=== PATIENT | female | born 1965 | race Caucasian/White ===

== ENCOUNTER 2020-07-08 04:56 | Emergency (ER) | payer SELFPAY ==
[2020-07-08 05:12] VITALS: BP 156/81; PULSE 78; RESP 18; TEMP 35.2; O2SAT 94; BMI 34.4
--- NOTE | 2020-07-08 05:33 | W.ED.ABDPA2 ---
HPI - Abdominal Pain General: Chief Complaint: Abdominal Pain Stated Complaint: side pain Time Seen by Provider: 07/08/20 05:01 History of Present Illness: HPI narrative: 55-year-old female presents with abdominal pain began at 2 AM left side. Patient reports the pain is extreme radiating from the left flank down into the pelvic area on the left side. She denies any gross hematuria she is not had a history of kidney stones she is not had any dysuria urgency or frequency. At home pain was extreme she is rating it a 10 of 10 however shortly after arriving in the emergency room she had sudden relief of the pain and is not recurred. By the time I seen her her pain is completely resolved. She declines offer for pain medications. She did vomit x2 due to the level of pain at home. She denies any radicular pain into her leg. She not had any fever sweats or chills. No recent respiratory symptoms. MD elicited complaint: flank pain Pertinent past history: none Onset (ago): hour(s) Pain Consistency: constant, now resolved and colicky Location: L flank Quality: sharp Radiation: LLQ and suprapubic Exacerbating factors: nothing Relieving factors: nothing Associated Symptoms: Reports nausea and vomiting; Denies change in bowel habits, change in stool character, chills, coffee ground emesis, constipation, GI cramping, diarrhea, dyspepsia, dysuria, fever(s), heartburn, hematochezia, hematuria, hematemesis, fecal incontinence, loose stools, melena, poor appetite and syncope Review of Systems Const: Denies: fever(s) or chills ENMT: Denies: throat pain, ear or mastoid pain, nasal discharge or nasal congestion Card: Denies: syncope Resp: Denies: dyspnea, productive cough or non-productive cough GI: Reports: nausea and vomiting; Denies: hematemesis, coffee ground emesis, heartburn, diarrhea, constipation, GI cramping, fecal incontinence, change in bowel habits, change in stool character, hematochezia or melena : Denies: dysuria or hematuria Skin/Breast: Denies: rash or pruritus PFSH ED PFSH: Medical History Hypertension Impaired glucose tolerance Surgical History History of appendectomy Social History Smoking and tobacco status: never smoked Alcohol intake: current Alcohol intake frequency: few times a month Physical Exam Const: COMMON NORMALS: no acute distress GENERAL APPEARANCE: cooperative and comfortable ORIENTATION/CONSCIOUSNESS: Yes awake, Yes oriented to person, Yes oriented to place and Yes oriented to time HENMT: COMMON NORMALS: normocephalic, atraumatic, hearing grossly normal bilaterally, external ears normal, EAC's normal, TM's normal bilaterally, Normal nasal mucous membranes and turbinates present, moist oral mucous membranes and oropharynx normal HEAD & SCALP: normocephalic and atraumatic NOSE: Normal nasal mucous membranes and turbinates present EXTERNAL EAR: Yes external ears normal EXTERNAL AUDITORY CANAL: EAC's normal TYMPANIC MEMBRANE: TM's normal bilaterally Eye: COMMON NORMALS: Equal, round and reactive pupils present, EOMs intact bilaterally, conjunctivae normal and no scleral icterus CONJUNCTIVA: Yes conjunctivae normal PUPIL: Yes Equal, round and reactive pupils present Neck/C-Spine: COMMON NORMALS: full ROM, no lymphadenopathy, supple and no JVD Lymph: LYMPHATIC: no lymphadenopathy noted and no lymphedema noted Resp: COMMON NORMALS: normal respiratory effort, No retractions, No use of accessory muscles and clear to auscultation bilaterally AUSCULTATION: clear to auscultation bilaterally Cardio: COMMON NORMALS: no JVD, regular rate, regular rhythm and No murmurs present (Cardio) RATE: regular rate RHYTHM: regular rhythm GI: COMMON NORMALS: Soft to palpation and No hepatosplenomegaly present AUSCULTATION: Yes normoactive bowel sounds PALPATION: Yes Soft to palpation, No Tenderness to palpation present (GI), No Guarding due to palpation present (GI) and Yes No hepatosplenomegaly present Extremity: COMMON NORMALS: normal to inspection, capillary refill normal, no clubbing, cyanosis or edema, no calf tenderness and no pedal edema Neuro: SENSORIUM/ORIENTATION: Yes oriented to person, Yes oriented to place and Yes oriented to time Skin: COMMON NORMALS: no rashes or lesions noted GENERAL SKIN EXAM: no rashes or lesions noted Course Vital Signs: Vital signs: Vital Signs Temperature 95.3 F L 07/08/20 05:12 Pulse Rate 78 07/08/20 06:06 Respiratory Rate 16 07/08/20 06:06 Blood Pressure 123/78 07/08/20 06:06 Pulse Oximetry 98 07/08/20 06:06 MDM - Abdominal Pain MDM Narrative: Medical decision making narrative: Patient has hematuria on UA. No signs of infection clinically she does have 1+ leukocyte esterase but also has and is same number of squamous cells is white cells. Prior to this beginning she was not having any dysuria urgency or frequency. I did not start her on antibiotics based on the lack of clinical symptoms. We will have her strain her urine and return stone to the emergency room if it is caught. Follow-up with her primary care doctor. Lab Data: Labs: Lab Results 07/08/20 07/08/20 07/08/20 Range/Units 05:32 05:32 06:04 WBC 10.7 H (4.0-10.0) 10^3/ uL RBC 5.20 (4.1-5.3) 10^6/u L Hgb 14.5 (11.5-15.3) g/dL Hct 44.9 (37.0-47.0) % MCV 86.3 (81-99) fL MCH 27.9 L (28.0-34.0) pg MCHC 32.3 (30.0-36.0) g/dL RDW 11.9 L (12.1-15.1) % Plt Count 260 (130-400) 10^3/c mm MPV 10.6 H (7.4-10.4) fL Neut % (Auto) 80.6 % Lymph % (Auto) 11.5 % Mineral % (Auto) 4.6 % Eos % (Auto) 2.0 % Baso % (Auto) 0.4 % Neut # (Auto) 8.64 H (1.8-7.7) 10^3/u L Lymph # (Auto) 1.2 (0.8-4.8) 10^3/u L Mineral # (Auto) 0.5 (0.2-0.9) 10^3/u L Eos # (Auto) 0.2 (0.0-0.8) 10^3/u L Baso # (Auto) 0.0 (0.0-0.1) 10^3/u L Nucleated RBC % (a uto) 0 % Nucleated RBCs # 0.0 /100WBC Sodium 136 (136-145) mmol/L Potassium 3.8 (3.5-5.1) mmol/L Chloride 101 (98-107) mmol/L Carbon Dioxide 25 (22-29) mmol/L Anion Gap 13.8 (5-19) BUN 12 (6-20) mg/dL Creatinine 0.7 (0.5-0.9) mg/dL GFR Calculation 86.2 L (90-130) mL/min Glucose 334 H (65-115) mg/dL Calculated Osmolal ity 291 (285-295) mOsm/k g Calcium 8.6 (8.5-10.5) mg/dL Total Bilirubin 1.0 (0.15-1.2) mg/dL AST 35 H (0-32) U/L ALT 58 H (0-33) U/L Alkaline Phosphata se 82 (35-105) IU/L Total Protein 7.3 (6.6-8.7) g/dL Albumin 4.2 (3.5-5.2) g/dL Globulin 3.1 (1.3-4.6) g/dL Urine Color Yellow (Yellow) Urine Appearance Cloudy (CLEAR) Urine pH 5 (5-7) Ur Specific Gravit y 1.020 (1.005-1.030) Urine Protein Neg (Negative) Urine Glucose (UA) 4+ H (Normal) Urine Ketones Negative (Negative) Urine Blood 3+ H (Negative) Urine Nitrate Negative (Negative) Urine Bilirubin Neg (NEGATIVE) Urine Urobilinogen Norm (Negative) mg/dL Ur Leukocyte Noelle ase 1+ H (Negative) Urine RBC Too numerous to c nt H (0-2) /hpf Urine WBC 5-10 H (0-5) /hpf Ur Squamous Epith Cells 5-10 H (0-5) Amorphous Sediment Not Reportable Urine Bacteria 1+ H (NONE) Discharge Plan Discharge Patient Disposition: Home Clinical Impression: Calculus of kidney Condition: Stable Discharge Orders: Discharge Order (Routine); Ordered 07/08/20 Ordered By: Zachary Atkinson Referrals: Nikky Alonso MD [Primary Care Provider] - Discharge Diet: Usual diet Discharge Activity: Increase activity as tolerated Activity Restrictions/Additional Instructions: Strain urine to collect stone return for analysis Discharge Date/Time: 07/08/20 07:09 Coding Level of Care Code ED Forestry Professor for Chg Fwd Exam Comprehensive
--- NOTE | 2020-07-08 05:34 | XR_ITS ---
WS: [id number] EXAM: ABDOMINAL KUB DATE OF EXAMINATION: 07/08/2020, 0538 hours COMPARISON: None. HISTORY: Patient is 55 years old with left-sided abdominal pain. Prior appendectomy. FINDINGS: The bowel gas pattern is normal. Increased stool demonstrated. No definite calcifications seen to sug gest renal or ureteral calculi. Solid organ silhouettes do not appear enlarged. Several calcification s in the deep pelvis are most likely phleboliths. If clinically there is concern for renal colic comp lete exclusion of a distal ureteral stone cannot be made. XR/XR KUB [id number] IMPRESSION: Normal bowel gas pattern. Slightly increased stool. No definite calcifications to suggest renal or ureteral calculi. See report.
[2020-07-08 05:39] VITALS: BP 132/84; PULSE 78; RESP 16; O2SAT 98
[2020-07-08 05:52] LABS: Basophils % 0.4 %; Eosinophils # 0.2 10^3/uL (0.0-0.8); Hematocrit 44.9 % (37.0-47.0); Hemoglobin 14.5 g/dL (11.5-15.3); Lymphocytes # 1.2 10^3/uL (0.8-4.8); Lymphocytes % 11.5 %; Mean Corpuscular HGB Conc 32.3 g/dL (30.0-36.0); Mean Corpuscular Hemoglobin 27.9 pg (28.0-34.0); Mean Corpuscular Volume 86.3 fL (81-99); Mean Platelet Volume 10.6 fL (7.4-10.4); Monocytes # 0.5 10^3/uL (0.2-0.9); Monocytes % 4.6 %; Neutrophils # 8.64 10^3/uL (1.8-7.7); Neutrophils % 80.6 %; Nucleated Red Blood Cells % 0 %; Platelet Count 260 10^3/cmm (130-400); Red Cell Distribution Width 11.9 % (12.1-15.1); White Blood Count 10.7 10^3/uL (4.0-10.0)
[2020-07-08 06:06] VITALS: BP 123/78; PULSE 78; RESP 16; O2SAT 98
[2020-07-08 06:22] LABS: Alanine Aminotransferase 58 U/L (0-33); Albumin Level 4.2 g/dL (3.5-5.2); Alkaline Phosphatase 82 IU/L (35-105); Anion Gap 13.8 (5-19); Aspartate Amino Transferase 35 U/L (0-32); Blood Urea Nitrogen 12 mg/dL (6-20); Calcium 8.6 mg/dL (8.5-10.5); Carbon Dioxide 25 mmol/L (22-29); Chloride 101 mmol/L (98-107); Globulin 3.1 g/dL (1.3-4.6); Glomerular Filtration Rate 86.2 mL/min (90-130); Glucose 334 mg/dL (65-115); Osmolality Calculated 291 mOsm/kg (285-295); Potassium 3.8 mmol/L (3.5-5.1); Sodium 136 mmol/L (136-145); Total Protein 7.3 g/dL (6.6-8.7)
[2020-07-08 06:32] LABS: Bilirubin Urine Neg (NEGATIVE); Blood Urine 3+ (Negative); Glucose Urine UA 4+ (Normal); Ketones Urine Negative (Negative); Leukocyte Esterase Urine 1+ (Negative); Nitrate Urine Negative (Negative); Protein Urine Neg (Negative); Urine Appearance Cloudy (CLEAR); Urine Color Yellow (Yellow); Urobilinogen Urine Norm (Negative); pH Urine 5 (5-7)
[2020-07-08 06:33] LABS: Add Urine Microscopic? YES
[2020-07-08 06:34] LABS: RBC Urine TOO NUMEROUS TO CNT /hpf (0-2)
[2020-07-08 06:35] LABS: Add Urine Culture? Yes; Bacteria Urine 1+
--- NOTE | 2020-07-08 06:52 | PC.NURSE ---
RN resumed care at this time.
== END 2020-07-08 07:09 | disposition home or self-care (01) ==
PROVIDERS: Emergency Provider Family Medicine; PCP Family Medicine
DX: N20.0 Calculus of kidney (principal); I10 Essential (primary) hypertension
CPT/HCPCS: 12345; 74018; 80053; 81001; 85025; 87086; 99283

== ENCOUNTER → 2021-12-19 10:05 | Outpatient (BNVA) | payer OTHER, SELFPAY | PROVIDERS: Visit Provider Family Medicine | DX: Z20.828 Contact with and (suspected) exposure to other viral communicable diseases (principal) | CPT/HCPCS: 87635 ==

== ENCOUNTER → 2022-05-31 11:10 | Outpatient (BNVA) | payer OTHER, SELFPAY | PROVIDERS: Visit Provider Psychiatry & Neurology Psychiatry | DX: F41.9 Anxiety disorder, unspecified (principal); Z79.899 Other long term (current) drug therapy | CPT/HCPCS: 80053; 80061; 83036; 84443 ==

== ENCOUNTER → 2022-07-27 08:45 | Outpatient (BNVA) | payer OTHER, SELFPAY | PROVIDERS: PCP Family Medicine; Visit Provider Family Medicine | DX: M25.60 Stiffness of unspecified joint, not elsewhere classified (principal); M79.10 Myalgia, unspecified site; F32.A Depression, unspecified; Z12.39 Encounter for other screening for malignant neoplasm of breast; Z12.11 Encounter for screening for malignant neoplasm of colon | CPT/HCPCS: 82670; 85651; 86038; 86140; 86431 ==

== ENCOUNTER 2022-08-03 07:54 | Outpatient (CLI) | payer OTHER, SELFPAY ==
--- NOTE | 2022-08-03 07:58 | MM_ITS ---
WS: [id number] Bilateral screening 3D tomosynthesis digital mammogram, 08/03/2022 Clinical Data: breast cancer screening Comparison: 03/28/2015. Findings: The breast parenchymal pattern shows heterogeneous density. No spiculated masses or clustered calcifi cations are seen. There are no secondary signs of carcinoma. The bilateral augmentation mammoplasty i mplants remain intact. MM/[place] [id number] Impression: 1. Negative bilateral mammogram unchanged. 2. Recommend annual screening mammograms. BIRADS: 2-Benign FOLLOW UP: 1 Year Follow-up The CAD relay checker was used.
== END 2022-08-03 07:55 | disposition home or self-care (01) ==
PROVIDERS: PCP Family Medicine; Visit Provider Family Medicine
DX: Z12.31 Encounter for screening mammogram for malignant neoplasm of breast (principal)
CPT/HCPCS: 77063; 77067

== ENCOUNTER → 2022-10-15 10:40 | Outpatient (BNVA) | payer OTHER, SELFPAY | PROVIDERS: PCP Family Medicine; Visit Provider Registered Nurse Neonatal Intensive Care | DX: R05.9 Cough, unspecified (principal); J10.1 Influenza due to other identified influenza virus with other respiratory manifestations | CPT/HCPCS: 87400 ==

== ENCOUNTER → 2022-10-26 11:32 | Outpatient (BNVA) | payer OTHER, SELFPAY | PROVIDERS: PCP Family Medicine; Visit Provider Family Medicine | DX: E78.5 Hyperlipidemia, unspecified (principal); I10 Essential (primary) hypertension; E11.69 Type 2 diabetes mellitus with other specified complication; E66.9 Obesity, unspecified | CPT/HCPCS: 80048; 80061; 83036 ==

== ENCOUNTER 2022-12-07 14:10 | Outpatient (CLI) | payer OTHER, SELFPAY ==
--- NOTE | 2022-12-07 14:35 | XR_ITS ---
WS: [id number] LEFT ELBOW: 3 VIEW(S) TECHNIQUE: AP, oblique and lateral. HISTORY: elbow pain COMPARISON: None available. No acute fractures or dislocation. No joint effusion. No soft tissue abnormality. XR/XR elbow LT min 3V* [id number] IMPRESSION: Normal LEFT elbow.
== END 2022-12-07 14:11 | disposition home or self-care (01) ==
LOC: RAD 14:12
PROVIDERS: PCP Family Medicine; Visit Provider Nurse Practitioner
DX: M25.522 Pain in left elbow (principal)
CPT/HCPCS: 73080

== ENCOUNTER 2023-01-28 07:04 | Outpatient (CLI) | payer OTHER, SELFPAY ==
--- NOTE | 2023-01-28 07:15 | MR_ITS ---
WS: [id number] EXAMINATION: MR elbow LT wo con* [id number] ORDER DATE: 01/28/2023 7:14 AM COMPARISON: None. HISTORY: worsening pain 6 weeks p trauma CONTRAST: None.None. TECHNIQUE: Axial T1, axial T2 fat sat, coronal T1, coronal proton density fat sat, coronal STIR, sagi ttal proton density fat sat, and axial fat sat 3D performed. After contrast, axial T1 fat sat, coron al T1 fat sat, and sagittal T1 fat sat were performed. FINDINGS: Small amount of edema with fluid along the common extensor tendon origin along the lateral epicondyle. Findings compatible with partial tear. Distal tendon is normal in appearance. Normal comm on flexor tendon origin. Normal bone marrow signal in the distal humerus. Normal bone marrow signal in the radius and ulna. No suspicious abnormalities directly deep to the palpable marker on the lateral aspect of the elbow. No subcutaneous mass or lesion in this location. Normal olecranon. Normal coronoid process. Radial head and neck are normal in appearance. No significant joint effusion. Small amount of subcuta neous edema along the dorsal elbow. No drainable fluid collections. MR/MR elbow LT wo con* [id number] IMPRESSION: 1. Small amount of fluid and edema along the common extensor tendon origin at the lateral epicondyle compatible with partial tear. Recommend correlation for lateral epicondylitis. 2. Normal bone marrow signal. No acute fractures. 3. Normal common flexor tendon origin.
== END 2023-01-28 07:05 | disposition home or self-care (01) ==
LOC: RAD 07:05
PROVIDERS: PCP Family Medicine; Visit Provider Family Medicine
DX: M25.522 Pain in left elbow (principal); R60.0 Localized edema
CPT/HCPCS: 73221

== ENCOUNTER 2023-03-04 13:36 | Outpatient (CLI) | payer OTHER, SELFPAY ==
[2023-03-04 14:41] LABS: Alanine Aminotransferase 39 U/L (0-33); Albumin Level 4.3 g/dL (3.5-5.2); Alkaline Phosphatase 82 U/L (35-105); Anion Gap 11.7 (5-19); Aspartate Amino Transferase 31 U/L (0-32); Blood Urea Nitrogen 8 mg/dL (6-20); Calcium 8.5 mg/dL (8.5-10.5); Carbon Dioxide 26 mmol/L (22-29); Chloride 101 mmol/L (98-107); Chol HDL Ratio 2.88 mg/dL (0.0-4.40); Cholesterol 141 mg/dL (0-200); Globulin 2.5 g/dL (1.3-4.6); Glomerular Filtration Rate 126.3 mL/min (90-130); Glucose 125 mg/dL (65-115); HDL Cholesterol 49 mg/dL (60-100); LDL Cholesterol Calculated 65 mg/dL (50-129); LDL HDL Ratio 1.33 RATIO (0.00-3.22); Osmolality Calculated 280 mOsm/kg (285-295); Potassium 3.7 mmol/L (3.5-5.1); Sodium 135 mmol/L (136-145); Total Bilirubin 1.5 mg/dL (0.15-1.2); Total Protein 6.8 g/dL (6.6-8.7); Triglycerides 135 mg/dL (0-150)
[2023-03-04 14:59] LABS: Estmated Average Glucose 171; Hemoglobin A1C 7.6 % (4.0-6.0)
== END 2023-03-04 13:37 | disposition home or self-care (01) ==
PROVIDERS: PCP Family Medicine; Visit Provider Family Medicine
DX: E11.69 Type 2 diabetes mellitus with other specified complication (principal); E66.9 Obesity, unspecified
CPT/HCPCS: 36415; 80053; 80061; 83036

== ENCOUNTER 2023-03-06 06:00 | Outpatient (RCR) | payer OTHER, SELFPAY | END 2023-03-17 23:59 | disposition home or self-care (01) | LOC: SOT 06:00 | PROVIDERS: PCP Family Medicine; Visit Provider Orthopaedic Surgery | DX: M77.12 Lateral epicondylitis, left elbow (principal) | CPT/HCPCS: 97110; 97165 ==

== ENCOUNTER 2023-03-18 06:00 | Outpatient (RCR) | payer OTHER, SELFPAY | END 2023-04-17 23:59 | disposition home or self-care (01) | LOC: SOT 06:00 | PROVIDERS: PCP Family Medicine; Visit Provider Orthopaedic Surgery | DX: M77.12 Lateral epicondylitis, left elbow (principal) | CPT/HCPCS: 97022; 97035; 97110; 97140; 97165 ==

== ENCOUNTER 2023-04-18 06:00 | Outpatient (RCR) | payer OTHER, SELFPAY | END 2023-05-17 23:59 | disposition home or self-care (01) | LOC: SOT 06:00 | PROVIDERS: PCP Family Medicine; Visit Provider Orthopaedic Surgery | DX: M77.12 Lateral epicondylitis, left elbow (principal) | CPT/HCPCS: 97032; 97035; 97110; G0283 ==

== ENCOUNTER 2023-05-18 06:00 | Outpatient (RCR) | payer OTHER, SELFPAY | END 2023-06-17 23:59 | disposition home or self-care (01) | LOC: SOT 06:00 | PROVIDERS: PCP Family Medicine; Visit Provider Orthopaedic Surgery | DX: M77.12 Lateral epicondylitis, left elbow (principal) | CPT/HCPCS: 97035; 97110; 97140; G0283 ==

== ENCOUNTER 2023-06-18 06:00 | Outpatient (RCR) | payer OTHER, SELFPAY | END 2023-07-18 23:59 | disposition home or self-care (01) | LOC: SOT 06:00 | PROVIDERS: PCP Family Medicine; Visit Provider Orthopaedic Surgery | DX: M77.10 Lateral epicondylitis, unspecified elbow (principal) | CPT/HCPCS: 97035; 97110; 97140 ==

== ENCOUNTER → 2023-07-10 12:59 | Outpatient (BNVA) | payer OTHER, SELFPAY | PROVIDERS: PCP Family Medicine; Visit Provider Specialist | DX: M65.832 Other synovitis and tenosynovitis, left forearm | CPT/HCPCS: 73080 ==

== ENCOUNTER 2023-08-06 07:02 | Outpatient (CLI) | payer OTHER, SELFPAY ==
--- NOTE | 2023-08-06 07:15 | MR_ITS ---
WS: [id number] MRI LEFT ELBOW WITHOUT CONTRAST. COMPARISON: 01/28/2023 Multiplanar, multisequence imaging is performed without contrast. The signal within the common extensor tendon at the attachment to the epicondyle has improved. Nearly completely resolved T2 signal. There is still a very thin area of increased T2 signal involving the common extensor tendon with mild thickening of the tendon. The radial collateral ligament appears int act. There is no joint effusion and no edema. No atrophy to the muscle bodies. No muscle edema. No additio nal abnormalities. IMPRESSION: 1. Significant improvement in the partial tear involving the common extensor tendon. There is still a small amount of increased T2 signal at its attachment to the epicondyle. Incomplete healing of the p artial common extensor tendon tear at this time. 2. There is mild intermediate increased signal and thickening of the common extensor tendon at the ep icondyle consistent with mild tendinopathy. 3. No joint effusion.
== END 2023-08-06 07:03 | disposition home or self-care (01) ==
LOC: RAD 07:03
PROVIDERS: PCP Family Medicine; Visit Provider Specialist
DX: M65.839 Other synovitis and tenosynovitis, unspecified forearm (principal); S56.512D Strain of other extensor muscle, fascia and tendon at forearm level, left arm, subsequent encounter; X58.XXXD Exposure to other specified factors, subsequent encounter
CPT/HCPCS: 73221

== ENCOUNTER → 2023-09-13 12:43 | Outpatient (BNVA) | payer OTHER, SELFPAY | PROVIDERS: PCP Family Medicine; Visit Provider Family Medicine | DX: E11.69 Type 2 diabetes mellitus with other specified complication (principal); E66.9 Obesity, unspecified | CPT/HCPCS: 80048; 80061; 83036 ==

== ENCOUNTER 2023-09-25 12:03 | Outpatient (CLI) | payer OTHER, SELFPAY ==
--- NOTE | 2023-09-25 12:08 | XR_ITS ---
WS: [id number] KUB, AP view, 09/25/2023 Clinical Data: left renal colic Comparison: KUB, 07/08/2020 Findings: No abnormal intraabdominal masses or calcifications are seen. There is no dilatated small bowel or ev idence of obstruction. There is a moderate amount of fecal material in the colon. Impression: Moderate fecal material in the colon.
== END 2023-09-25 12:04 | disposition home or self-care (01) ==
LOC: RAD 12:04
PROVIDERS: PCP Family Medicine; Visit Provider Family Medicine
DX: N20.0 Calculus of kidney (principal)
CPT/HCPCS: 74018; 81000

== ENCOUNTER → 2024-06-26 08:45 | Outpatient (BNVA) | payer OTHER, SELFPAY | PROVIDERS: PCP Family Medicine; Visit Provider Family Medicine | DX: E11.9 Type 2 diabetes mellitus without complications (principal) | CPT/HCPCS: 80053; 80061; 82607; 83036 ==

== ENCOUNTER → 2024-12-04 09:17 | Outpatient (BNVA) | payer OTHER, SELFPAY | PROVIDERS: PCP Family Medicine; Visit Provider Family Medicine | DX: E11.9 Type 2 diabetes mellitus without complications; E11.69 Type 2 diabetes mellitus with other specified complication; E66.9 Obesity, unspecified; E78.5 Hyperlipidemia, unspecified; I10 Essential (primary) hypertension; F98.8 Other specified behavioral and emotional disorders with onset usually occurring in childhood and adolescence; N20.0 Calculus of kidney; H26.9 Unspecified cataract; Z00.00 Encounter for general adult medical examination without abnormal findings | CPT/HCPCS: 80053; 80061; 82607; 83036 ==

== ENCOUNTER 2024-12-31 08:07 | Outpatient (CLI) | payer OTHER, SELFPAY ==
--- NOTE | 2024-12-31 08:00 | MM_ITS ---
WS: [id number] BILATERAL SCREENING DIGITAL BREAST MAMMOGRAPHY WITH [place]ON DISPLACEMENT VIEWS. CAD PERFORMED. HISTORY: breast cancer screening COMPARISON: 08/03/2022 Bilateral craniocaudal and mediolateral oblique views are performed with tomosynthesis and SM. Newtno displacement views in CC and MLO projection also performed. Breasts composition: There are scattered areas of fibroglandular density. Prepectoral implants are intact and similar to the prior study. No suspicious masses or calcifications. No distortion. MM/MM scr tomosynthesis [id number] IMPRESSION: BI-RADS: 2 - Benign. FOLLOW-UP: 1 Year Follow-up
== END 2024-12-31 08:08 | disposition home or self-care (01) ==
PROVIDERS: PCP Family Medicine; Visit Provider Family Medicine
DX: Z12.31 Encounter for screening mammogram for malignant neoplasm of breast (principal); R92.323 Mammographic fibroglandular density, bilateral breasts; Z98.82 Breast implant status
CPT/HCPCS: 77063; 77067

== ENCOUNTER 2025-02-18 05:53 | Day surgery (SDC) | payer OTHER, SELFPAY ==
--- NOTE | 2025-02-18 06:03 | W.PM.OPSFHP ---
Same Day Surgery H&P Indication for Procedure/HPI DATE OF PROCEDURE: February 18, 2025 CHIEF COMPLAINT/INDICATIONFOR SURGICAL PROCEDURE: need for screening colonoscopy PREOP DIAGNOSIS: need for screening colonoscopy PLANNED PROCEDURE: Operation Date: 02/18/25 07:00 Proposed Procedures p Colonoscopy 86127 G0121 Z12.11(Not Applicable) - Omar Hinton MD Medications/Allergies* Home Medications ?Medication ?Instructions ?Recorded ?Confirmed ?Type magnesium 200 mg tablet 200 mg PO DAILY 08/06/23 02/15/25 History atorvastatin 40 mg tablet 40 mg PO DAILY 02/15/25 02/15/25 History lisinopril 5 mg tablet 5 mg PO DAILY 02/15/25 02/15/25 History metformin 500 mg tablet 1,000 mg PO DAILY 02/15/25 02/15/25 History tramadol 50 mg tablet 50 mg PO Q6H PRN kidney stone 02/15/25 02/15/25 History Allergies/Adverse Reactions Allergy/AdvReac Type Severity Reaction Status Date / Time penicillin G Allergy ALGY-Anaphy Verified 02/15/25 09:26 laxis semaglutide (From Ozempic) Allergy ADR-Abdominal Verified 02/15/25 09:26 Pain Pertinent History/Comorbid Conditions* Medical History (Updated 12/04/24 @ 09:18 by Mecca Escalera MD) History of kidney stones Hyperlipidemia Depression Diabetes mellitus type 2 in obese Anxiety Hypertension Surgical History (Updated 07/27/22 @ 08:28 by Mecca Escalera MD) History of breast augmentation History of tonsillectomy History of appendectomy Family History (Updated 07/27/22 @ 08:31 by Mecca Escalera MD) Diabetes Mother CAD (coronary artery disease) Father Cancer Family/Other breast Social History Smoking and tobacco/nicotine status: never used tobacco/nicotine Alcohol intake: current Alcohol intake frequency: few times a month Pertinent Exam Findings alert, oriented x 3, clear to auscultation bilaterally and regular rate & rhythm Recommendations Surgery/Procedure today Coding Level of Care Code Acute Code for Chg Fwd
[2025-02-18 06:06] VITALS: BP 138/94; PULSE 119; RESP 16; TEMP 36.1; O2SAT 96; BMI 28.1
[2025-02-18] MEDS: sodium chloride 0.9% 1,000 ML 30 ML IV (06:11)
[2025-02-18 06:29] LABS: Glucose Point of Care 130 mg/dL (70-110)
--- NOTE | 2025-02-18 06:56 | ANES.PREANE2 ---
Pre-Anesthetic Assessment Height/Weight: Height 1.7 m Weight 81.647 kg Temp Pulse Resp BP Pulse Ox O2 Del Method 97.0 F L 119 H 16 138/94 96 Room Air 02/18/25 06:06 02/18/25 06:06 02/18/25 06:06 02/18/25 06:06 02/18/25 06:06 02/18/25 06:06 Preop Diagnosis: need for screening colonoscopy Operation Date: 02/18/25 07:00 Proposed Procedures p Colonoscopy 37656 G0121 Z12.11(Not Applicable) - Omar Hinton MD Familial anesthetic complications: none Was Beta David taken within 24 hours: N/A Was Clonidine taken within 24 hours: N/A Last intake: Intake Last Liquid Date 02/16/25 Last Liquid Time 09:00 Last Solid Date 02/17/25 Last Solid Time 18:00 Social No alcohol and No tobacco Exam alert, oriented x 3, clear to auscultation bilaterally and regular rate & rhythm Airway Cervical ROM: within normal limits Mallampati: Class II Dentition: full History/ROS No significant complaints Pulmonary Sleep Apnea (Lost 50lb since diagnosed) CV/HEM Hypertension None reported Hepatic None reported GI None reported Metabolic Diabetes Mellitus [facility] None reported Neuropsych None reported Anesthetic Plan ASA status: 2 Anesthesia: MAC Risk of > 500 ml blood loss (7ml/kg in children): No Medications/Allergies Home Medications ?Medication ?Instructions ?Recorded ?Confirmed ?Last Taken ?Type magnesium 200 mg tablet 200 mg PO DAILY 08/06/23 02/15/25 02/17/25 08:00 History ondansetron 4 mg disintegrating 4 mg PO Q8H PRN nausea and 09/25/23 02/15/25 02/17/25 08:00 Rx tablet vomiting #10 tabs atomoxetine 80 mg capsule 80 mg PO DAILY #30 caps 01/08/25 02/15/25 02/17/25 08:00 Rx atorvastatin 40 mg tablet 40 mg PO DAILY 02/15/25 02/15/25 02/17/25 08:00 History lisinopril 5 mg tablet 5 mg PO DAILY 02/15/25 02/15/25 02/17/25 08:00 History metformin 500 mg tablet 1,000 mg PO DAILY 02/15/25 02/15/25 02/17/25 08:00 History tramadol 50 mg tablet 50 mg PO Q6H PRN kidney stone 02/15/25 02/15/25 02/17/25 08:00 History Allergies Allergy/AdvReac Type Severity Reaction Status Date / Time penicillin G Allergy ALGY-Anaphy Verified 02/18/25 06:05 laxis semaglutide (From Ozempic) Allergy ADR-Abdominal Verified 02/18/25 06:05 Pain Current Medications Generic Name Dose Route Start Last Admin Trade Name Freq PRN Reason Stop Dose Admin Sodium Chloride 1,000 mls @ 30 mls/hr 02/18/25 06:00 02/18/25 06:11 Sodium Chloride 0.9% IV 30 mls/hr .Q24H COCO Administration PFSH Anesthesia Medical History (Updated 12/04/24 @ 09:18 by Mecca Escalera MD) History of kidney stones Hyperlipidemia Depression Diabetes mellitus type 2 in obese Anxiety Hypertension Surgical History History of breast augmentation History of tonsillectomy History of appendectomy Family History Mother Diabetes Father CAD (coronary artery disease) Family/Other Cancer breast Social History Smoking and tobacco/nicotine status: never used tobacco/nicotine Alcohol intake: current Alcohol intake frequency: few times a month Data Anesthesia Cardiac Studies: No Data to Display
[2025-02-18 07:23] VITALS: BP 116/72; PULSE 102; RESP 18; TEMP 36.1; O2SAT 96
[2025-02-18 07:41] VITALS: BP 128/79; PULSE 89; RESP 18; O2SAT 97
--- NOTE | 2025-02-18 07:55 | ANE.PACU2 ---
Inpatient post-anesthesia follow up: Airway intact: Yes Vital signs: Temperature 97 F Pulse Rate 89 Respiratory Rate 18 Blood Pressure 128/79 Pulse Oximetry 97 Oxygen Delivery Me thod Room Air Oxygen Flow Rate Fraction of Inspir ed Oxygen Hydration adequate: Yes Nausea and vomiting: No Pain level: 1 Mental status: Baseline
== END 2025-02-18 07:55 | disposition home or self-care (01) ==
PROVIDERS: PCP Family Medicine; Visit Provider Surgery
PROC: 0DJD8ZZ Inspection of Lower Intestinal Tract, Via Natural or Artificial Opening Endoscopic (ICD-10-PCS; CPT 45378; principal; 2025-02-18 07:00)
DX: Z12.11 Encounter for screening for malignant neoplasm of colon (principal); K64.8 Other hemorrhoids; E11.9 Type 2 diabetes mellitus without complications; I10 Essential (primary) hypertension; E78.5 Hyperlipidemia, unspecified; G47.30 Sleep apnea, unspecified; Z79.899 Other long term (current) drug therapy; Z79.84 Long term (current) use of oral hypoglycemic drugs; Z88.0 Allergy status to penicillin; Z88.8 Allergy status to other drugs, medicaments and biological substances
CPT/HCPCS: 36416; 45378; 82962; J2704; J7030; J9999

== ENCOUNTER → 2025-06-04 08:35 | Outpatient (BNVA) | payer OTHER, SELFPAY | PROVIDERS: PCP Family Medicine; Visit Provider Family Medicine | DX: I10 Essential (primary) hypertension (principal); E78.5 Hyperlipidemia, unspecified; E11.69 Type 2 diabetes mellitus with other specified complication; E66.9 Obesity, unspecified; R41.3 Other amnesia; R23.2 Flushing | CPT/HCPCS: 80053; 80061; 82306; 82607; 82746; 83036; 84443; 85025 ==

== ENCOUNTER → 2025-10-25 09:44 | Outpatient (BNVA) | payer OTHER, SELFPAY | PROVIDERS: PCP Family Medicine; Visit Provider Family Medicine | DX: E11.69 Type 2 diabetes mellitus with other specified complication (principal); E66.9 Obesity, unspecified; E78.5 Hyperlipidemia, unspecified; I10 Essential (primary) hypertension; F98.8 Other specified behavioral and emotional disorders with onset usually occurring in childhood and adolescence | CPT/HCPCS: 80048; 80061; 83036 ==

== ENCOUNTER 2025-11-17 14:04 | Outpatient (RCR) | payer OTHER, SELFPAY | END 2025-11-17 23:59 | disposition home or self-care (01) | LOC: SOT 14:04 | PROVIDERS: Visit Provider Orthopaedic Surgery | DX: M77.12 Lateral epicondylitis, left elbow (principal) | CPT/HCPCS: 97110; 97165 ==